=== PATIENT | male | born 1945 | race Hispanic/Latino ===

== ENCOUNTER 2023-06-07 10:13 | Emergency (ER) | payer MEDICARE, BC ==
[~2023-06-07] VITALS: Ht 172.7 cm; Wt 67.1 kg
[2023-06-07 11:37] VITALS: BP 129/76; PULSE 78; RESP 20
== END 2023-06-07 14:58 | disposition left against medical advice (07) ==
LOC: EDH 10:13
DX: R11.2 Nausea with vomiting, unspecified (principal); R19.7 Diarrhea, unspecified; Z53.21 Procedure and treatment not carried out due to patient leaving prior to being seen by health care provider
CPT/HCPCS: 99281

== ENCOUNTER 2024-08-11 09:55 | Day surgery (SDC) | payer MEDICARE, BC ==
[2024-08-11] VITALS (12 sets, daily range): BP systolic 97–160; BP diastolic 53–72; PULSE 55–60; RESP 13–18; TEMP 97.2–97.4
[~2024-08-11] VITALS: Ht 172.7 cm; Wt 67.6 kg
[~2024-08-11 09:55] MED LIST: ASPI-1005 PO; ERGO500093 PO; METO-408 PO; PREG50CA64 PO; TAMS-1 PO; TERB250T89 PO
[2024-08-11] MEDS ORDERED: 0.9%NACL 1000ML 1,000 ML IV ONE (10:43)
[2024-08-11] MEDS ORDERED: proPOFol 10 MG/ML 20ML VIAL IV ONE ×2 (12:00→12:01)
[2024-08-11] MEDS ORDERED: LIDOCAINE HCL 1% 20 ML VIAL ONE (12:03)
== END 2024-08-11 13:30 | disposition home or self-care (01) ==
LOC: DAH 09:55 → ENDO 09:55
PROVIDERS: ATTEND Internal Medicine Gastroenterology
DX: R13.10 Dysphagia, unspecified (principal); R49.0 Dysphonia; K29.50 Unspecified chronic gastritis without bleeding; K31.89 Other diseases of stomach and duodenum; K21.00 Gastro-esophageal reflux disease with esophagitis, without bleeding; K44.9 Diaphragmatic hernia without obstruction or gangrene; K29.00 Acute gastritis without bleeding; E78.5 Hyperlipidemia, unspecified; I10 Essential (primary) hypertension; Z79.82 Long term (current) use of aspirin; Z79.899 Other long term (current) drug therapy
CPT/HCPCS: 43248; 43239; 88305; 88312; J7030; J2704 ×2; A4620; A4215 ×2; A4223; A4222; A4221; A4663; A4606; J3490